=== PATIENT | female | born 1970 | race Caucasian/White ===

== ENCOUNTER 2017-05-03 15:45 | Outpatient (CLI) | payer BC | END 2017-05-03 15:46 | disposition home or self-care (01) | LOC: BICMAMMO 15:45 | DX: Z12.31 Encounter for screening mammogram for malignant neoplasm of breast (principal) | CPT/HCPCS: 77063; 77067 ==

== ENCOUNTER 2018-05-17 08:42 | Outpatient (CLI) | payer BC | END 2018-05-17 08:43 | disposition home or self-care (01) | LOC: BICMAMMO 08:42 | DX: Z12.31 Encounter for screening mammogram for malignant neoplasm of breast (principal) | CPT/HCPCS: 77063; 77067 ==

== ENCOUNTER 2018-12-27 14:47 | Outpatient (CLI) | payer BC ==
--- NOTE | 2018-12-27 16:01 | ULT ---
THYROID ULTRASOUND: 12/27/18 INDICATIONS: Thyroid nodule. Comparison made to a thyroid ultrasound dated February 2006. That exam described a small nodule in th e mid right lobe measuring 7 to 8 mm. On today's exam, there is a well circumscribed nodule in the mid right lobe measuring 1.0 x 1.3 cm. A tiny hypoechoic nodule in the more superior right lobe measures 2 to 3 mm. Left lobe is unremarkable . Both lobes are homogeneous. Right lobe measures 6.0 x 2.0 x 2.0 cm. Left lobe measures 5.0 x 2.0 x 2.0 cm. IMPRESSION: Circumscribed nodule in the mid right lobe measures 1.0 to 1.3 cm. This nodule is complex with cad intern al cystic components and isoechoic appearance. This nodule is a TI-RADS 4, moderately suspicious. Giv en its size of less than 1.5 cm, recommend short term follow-up with repeat exam in six months. POS: PREETHI
== END 2018-12-27 14:48 | disposition home or self-care (01) ==
LOC: BICULT 14:47
PROVIDERS: ATTEND Otolaryngology Otolaryngic Allergy
DX: D49.7 Neoplasm of unspecified behavior of endocrine glands and other parts of nervous system (principal); E04.1 Nontoxic single thyroid nodule
CPT/HCPCS: 76536

== ENCOUNTER 2019-05-18 13:27 | Outpatient (CLI) | payer BC ==
--- NOTE | 2019-05-18 14:01 | MMO ---
Bilateral MAMMO Bilat Screen [facility]. CLINICAL HISTORY: Patient is 49 years old and is seen for screening. The patient has no family history of breast cancer. The patient has no personal history of cancer. VIEWS: The views performed were: bilateral craniocaudal with tomosynthesis and bilateral mediolateral oblique with tomosynthesis. FILMS COMPARED: The present examination has been compared to prior imaging studies performed at [facility] on 05/03/2017 and 05/17/2018, and [place] [facility] 01/08/2015 and 03/02/2016. This study has been interpreted with the assistance of computer-aided detection. MAMMOGRAM FINDINGS: There are scattered fibroglandular densities. There are no suspicious masses, suspicious calcifications, or new areas of architectural distortion. IMPRESSION: THERE IS NO MAMMOGRAPHIC EVIDENCE OF MALIGNANCY. A ROUTINE FOLLOW-UP MAMMOGRAM IN 1 YEAR IS RECOMMENDED. THE RESULTS OF THIS EXAM WERE SENT TO THE PATIENT. ACR BI-RADS Category 1 - Negative MAMMOGRAPHY NOTE: 1. A negative mammogram report should not delay a biopsy if a dominant of clinically suspicious mass is present. 2. Approximately 10% to 15% of breast cancers are not detected by mammography. 3. Adenosis and dense breasts may obscure an underlying neoplasm. Reported by: SERG FOWLER MD Electonically Signed: [id number]
== END 2019-05-18 13:28 | disposition home or self-care (01) ==
LOC: BICMAMMO 13:27
DX: Z12.31 Encounter for screening mammogram for malignant neoplasm of breast (principal)
CPT/HCPCS: 77063; 77067

== ENCOUNTER 2023-01-15 14:01 | Outpatient (CLI) | payer BC | END 2023-01-15 14:02 | disposition home or self-care (01) | LOC: BICULT 14:01 | PROVIDERS: ATTEND Otolaryngology Otolaryngic Allergy | DX: E04.1 Nontoxic single thyroid nodule (principal) | CPT/HCPCS: 76536 ==